=== PATIENT | female | born 1970 | race Caucasian/White ===

== ENCOUNTER 2020-05-27 07:29 | Inpatient (IN) | payer BC, OTHER ==
[~2020-05-27] VITALS: Ht 165.1 cm; Wt 110.9 kg
[2020-05-27] MEDS ORDERED: SODIUM CHLORIDE 0.9% 1,000 ML IV ONE ×2 (07:45)
[2020-05-27 08:11] LABS: Basophils # (auto) 0.1 10 ^3/uL (0-0.2); Basophils % (auto) 0.7 % (0.0-2.0); Eosinophils # (auto) 0.1 10 ^3/uL (0-0.8); Eosinophils % (auto) 0.9 % (0.0-7.0); Hematocrit 49.2 % (36.0-46.0); Hemoglobin 16.2 g/dL (12.2-16.2); Lymphocytes # (auto) 1.5 10 ^3/uL (0.4-5.4); Lymphocytes % (auto) 20.7 % (10.0-50.0); Mean Corpuscular Hemoglobin 31.1 pg (28.0-32.0); Mean Corpuscular Hgb Conc. 32.8 g/dL (32.0-36.0); Mean Corpuscular Volume 94.8 fL (80.0-100.0); Monocytes # (auto) 0.3 10 ^3/uL (0-1.3); Neutrophils # (auto) 5.5 10 ^3/uL (1.6-8.6); Neutrophils % (auto) 73.7 % (37.0-80.0); Platelet Count (auto) 340 10^3/uL (140-450); Red Blood Cells 5.19 10^6/uL (4.0-5.20); Red Cell Distribution Width 16.6 % (11.8-14.3); White Blood Cell 7.4 10^3/uL (4.4-10.8)
[2020-05-27 08:24] LABS: Anion Gap 8 (5-15); Blood Urea Nitrogen 10 mg/dL (7-18); Carbon Dioxide 24 mmol/L (21-32); Chloride 107 mmol/L (98-107); Glucose 122 mg/dL (74-106); Magnesium 2.4 mg/dL (1.6-2.6); Potassium 3.3 mmol/L (3.5-5.1); Sodium 139 mmol/L (136-145)
[2020-05-27 08:31] LABS: Alanine Aminotransferase 28 U/L (13-56); Alkaline Phosphatase 89 U/L (45-117); Aspartate Aminotransferase 20 U/L (15-37); BUN/Creatinine Ratio 9.3; Bilirubin, Total 0.8 mg/dL (0.2-1.0); GFR African American 70 mL/min; GFR Non-African American 58 mL/min; Total Protein 7.5 g/dL (6.4-8.2)
[2020-05-27] MEDS ORDERED: ONDANSETRON HCL 4 MG/2 ML VIAL IV ONE (08:45)
[2020-05-27] MEDS ORDERED: LORazepam 2MG/ML-1ML VIAL IV ONE ×2 (09:00→12:30)
[2020-05-27 10:00] LABS: Urine Bacteria NONE SEEN /hpf (None Seen); Urine Blood Negative /uL (Negative); Urine Mucus FEW (None Seen); Urine Specific Gravity 1.005 (1.001-1.035); Urine WBC 2 /hpf (0 - 5)
[2020-05-27] MEDS ORDERED: LACTATED RINGER'S 1,000 ML IV ONE (10:30)
[2020-05-27] MEDS ORDERED: LEVOTHYROXINE SODIUM 100 MCG/5 ML INJ IV ONE (10:30)
[2020-05-27] MEDS ORDERED: HYDROCORTISONE SOD SUCC 100 MG/2ML INJ VIAL IV ONE (10:30)
[2020-05-27] MEDS ORDERED: POTASSIUM CHL 20MEQ/100ML 100 ML IV ONE (10:30)
[2020-05-27] MEDS ORDERED: cefTRIAXone 1GM/50ML D5W 50 ML IV ONE (10:30)
[2020-05-27] MEDS ORDERED: DOCUSATE SOD 100 MG CAP PO PRN (11:00)
[2020-05-27] MEDS ORDERED: MORPHINE SULF INJ 2 MG/ML SYRINGE 1ML IV PRN ×2 (11:00)
[2020-05-27] MEDS ORDERED: HYDROcodone-ACET 5/325MG TAB PO PRN (11:00)
[2020-05-27] MEDS ORDERED: ACETAMINOPHEN 325 MG TAB PO PRN (11:00)
[2020-05-27] MEDS ORDERED: LACTULOSE 20Gm/30ML SOLN PO ONE (11:00)
[2020-05-27] MEDS ORDERED: ATORVASTATIN 20 MG TAB PO ONE (11:00)
[2020-05-27] MEDS ORDERED: POTASSIUM EFFERVESENT TAB 25 MEQ PO ONE (11:00)
[2020-05-27] MEDS ORDERED: NITROGLYCERIN 0.4 MG SL TAB SL PRN (11:00)
[2020-05-27] MEDS ORDERED: ALUM & MAG HYDROX-SIMETH LIQ(MAALOX) 30 ML PO PRN (11:00)
[2020-05-27] MEDS ORDERED: LACTULOSE 20Gm/30ML SOLN PO PRN (11:00)
[2020-05-27 11:43] LABS: Cholesterol 254 mg/dL (< 200)
[2020-05-27 11:48] LABS: HDL Cholesterol 50 mg/dL (40-59); LDL Cholesterol 183 mg/dL (< 100); Triglycerides 210 mg/dL (< 150)
[2020-05-27] MEDS: HYDROCORTISONE SOD SUCC 100 MG/2ML INJ VIAL IV SCH ×2 (14:55→21:55)
--- NOTE | 2020-05-27 15:15 | NUR ---
Telemetry admit from ER TISH YUNG admitted to Telemetry unit after SBAR received. Patient oriented to Rossi Randall, primary RN, unit, room, bed, and unit policies regarding patient care and visiting hours. Patient now on continuous telemetry monitoring, tele box # 31 and telemetry reading on arrival to unit is SINUS RHYTHM AT 94. No s/s of distress noted. Updated on POC and instructed to call for assistance as needed, patient verbalized understanding. Bed locked in lowest position, side rails up x2, call light within reach, fall precautions in place. Will continue to monitor for changes.
[2020-05-27 15:20] VITALS: BP 126/81
[2020-05-27] MEDS: SODIUM CHLORIDE 0.9% 1,000 ML IV SCH ×2 (15:40→21:49)
[2020-05-27 16:00] VITALS: BP 126/81
[2020-05-27] MEDS ORDERED: LEVO150T10 PO (16:03)
[2020-05-27] MEDS ORDERED: METO25TA93 PO (16:03)
[2020-05-27] MEDS: LORazepam 0.5 MG TAB PO PRN (18:03)
--- NOTE | 2020-05-27 19:40 | NUR ---
Opening Shift Note Assumed care of patient, awake and alert. No S/S of distress/SOB noted. Instructed to call for assist PRN. Discussed the plan of care with the patient. Bed in lowest position, side rails up x2, and the call light is within reach.
[2020-05-27] MEDS: METOPROLOL TARTRATE 25 MG TAB PO SCH (21:49)
[2020-05-27 21:50] VITALS: BP 96/47
[2020-05-27] MEDS ORDERED: ATORVASTATIN 20 MG TAB PO SCH (22:00)
[2020-05-28] MEDS: LORazepam 0.5 MG TAB PO PRN ×2 (04:57→10:43)
[2020-05-28 05:05] VITALS: BP 118/74
[2020-05-28] MEDS: HYDROCORTISONE SOD SUCC 100 MG/2ML INJ VIAL IV SCH (05:35)
--- NOTE | 2020-05-28 07:30 | NUR ---
Opening Shift Note Assumed care of patient, awake and alert. No S/S of distress/SOB, patient denies pain at this time. Updated on POC and instructed to call for assistance PRN. Bed locked in lowest position, side rails up x2, call light within reach. Fall precautions in place. Will continue to monitor for changes Q1hr and PRN.
[2020-05-28] MEDS ORDERED: ADENOSINE 88 MG in GIVE UN-DILUTED 0 ML IV STA (08:18)
--- NOTE | 2020-05-28 08:25 | NUR ---
IV insertion IV access obtained, via clean sterile technique by inserting 20 gauge catheter at LEFT FOREARM after 1 attempt. IV secured properly. No trauma to site. Patient tolerated well.
[2020-05-28 09:00] VITALS: BP 144/87
[2020-05-28] MEDS ORDERED: cefTRIAXone 1GM/50ML D5W 50 ML IV SCH (09:00)
[2020-05-28] MEDS: LEVOTHYROXINE SODIUM 100 MCG/5 ML INJ IV SCH (09:16)
[2020-05-28] MEDS: ASPirin 81 mg TAB PO SCH (09:17)
[2020-05-28] MEDS: POTASSIUM CHL 20 Meq TABLET PO SCH (09:17)
[2020-05-28] MEDS: METOPROLOL TARTRATE 25 MG TAB PO SCH (09:17)
[2020-05-28] MEDS ORDERED: ENOXAPARIN SOD 40 MG/0.4 ML SYRINGE SC SCH (10:00)
[2020-05-28] MEDS ORDERED: traMADol HCL 50 MG TAB PO PRN (10:45)
[2020-05-28 12:41] VITALS: BP 144/77
[2020-05-28] MEDS ORDERED: LORazepam 0.5 MG TAB PO PRN (14:15)
--- NOTE | 2020-05-28 14:31 | NUR ---
Nutrition Consult/assessment Note Please see attached link for complete assessment Est Energy needs ABW 80 [id number] kcals (20-23 kcal/kgBW), Est Protein needs: 80-88 gms/day (1.0-1.1 gm/kgBW). Will continue to monitor and reassess prn. Addendum: 05/28/20 at [address] Amended: Links added.
[2020-05-28 16:59] VITALS: BP 127/79
--- NOTE | 2020-05-28 19:30 | NUR ---
Opening Shift Note Assumed care of patient, awake and alert. No S/S of distress/SOB noted. Discussed the plan of care, instructed to call as needed. Bed in lowest position, side rails up x2, and the call light is within reach, will continue to monitor
[2020-05-28 21:00] VITALS: BP 120/69
[2020-05-28] MEDS: ATORVASTATIN 20 MG TAB PO SCH (22:11)
[2020-05-29 05:00] VITALS: BP 116/68
--- NOTE | 2020-05-29 05:07 | NUR ---
Patient anxious at this time and complained of nausea, PRN meds given as ordered.
[2020-05-29] MEDS: ONDANSETRON HCL 4 MG/2 ML VIAL IV PRN ×2 (05:24→09:58)
[2020-05-29 06:07] LABS: Calcium 8.4 mg/dL (8.5-10.1); Potassium 3.4 mmol/L (3.5-5.1)
[2020-05-29 06:11] LABS: BUN/Creatinine Ratio 9.3
--- NOTE | 2020-05-29 08:00 | NUR ---
Opening Shift Note Assumed care of patient, awake and alert. No S/S of distress/SOB or pain. Patient is very anxious and complaints of nausea. Emotional support provided. Will give due medication on time. Will inform MD of the current status. Instructed on POC and to call for assist PRN, will continue to monitor for changes Q1hr and PRN.
[2020-05-29 09:00] VITALS: BP 116/60
[2020-05-29] MEDS: LEVOTHYROXINE SODIUM 100 MCG/5 ML INJ IV SCH (09:58)
[2020-05-29] MEDS: ASPirin 81 mg TAB PO SCH (09:58)
[2020-05-29] MEDS: POTASSIUM CHL 20 Meq TABLET PO SCH (09:58)
[2020-05-29] MEDS ORDERED: LEVOTHYROXINE SODIUM 50 MCG TAB PO ONE (10:45)
[2020-05-29] MEDS ORDERED: PANTOPRAZOLE 40 MG/10 ML VIAL INJ IV ONE (10:45)
[2020-05-29] MEDS: SOD CHL 0.9%/ KCL 20MEQ 1,000 ML IV SCH (11:24)
[2020-05-29] MEDS: LORazepam 0.5 MG TAB PO PRN (11:26)
[2020-05-29 13:00] VITALS: BP 126/84
[2020-05-29 17:08] VITALS: BP 117/74
[2020-05-29] MEDS: SIMETHICONE 40 MG/0.6 ML ORAL DROP PO SCH ×2 (17:17→21:57)
[2020-05-29] MEDS: SUCRALFATE 1 GM/10 ML ORAL SUSP PO SCH ×2 (17:17→21:56)
--- NOTE | 2020-05-29 19:30 | NUR ---
Opening Shift Note Assumed care of patient, awake and alert. No S/S of distress/SOB or pain. Instructed on POC and to call for assist PRN, will continue to monitor for changes Q1hr and PRN.
[2020-05-29] MEDS: ATORVASTATIN 20 MG TAB PO SCH (21:57)
[2020-05-29] MEDS: PANTOPRAZOLE 40 MG/10 ML VIAL INJ IV SCH (21:57)
[2020-05-29 22:00] VITALS: BP 106/67
[2020-05-30] MEDS: SOD CHL 0.9%/ KCL 20MEQ 1,000 ML IV SCH (02:34)
[2020-05-30 05:00] VITALS: BP 135/70
[2020-05-30 06:05] LABS: Basophils # (auto) 0.1 10 ^3/uL (0-0.2); Basophils % (auto) 0.8 % (0.0-2.0); Eosinophils # (auto) 0.1 10 ^3/uL (0-0.8); Eosinophils % (auto) 1.1 % (0.0-7.0); Hematocrit 43.1 % (36.0-46.0); Hemoglobin 14.3 g/dL (12.2-16.2); Lymphocytes # (auto) 1.9 10 ^3/uL (0.4-5.4); Lymphocytes % (auto) 29.4 % (10.0-50.0); Mean Corpuscular Hemoglobin 32.2 pg (28.0-32.0); Mean Corpuscular Hgb Conc. 33.3 g/dL (32.0-36.0); Mean Corpuscular Volume 96.9 fL (80.0-100.0); Monocytes # (auto) 0.3 10 ^3/uL (0-1.3); Monocytes % (auto) 4.5 % (0.0-12.0); Neutrophils # (auto) 4.1 10 ^3/uL (1.6-8.6); Neutrophils % (auto) 64.2 % (37.0-80.0); Nucleated Red Blood Cells % 0.1 %; Platelet Count (auto) 296 10^3/uL (140-450); Red Blood Cells 4.45 10^6/uL (4.0-5.20); White Blood Cell 6.4 10^3/uL (4.4-10.8)
[2020-05-30] MEDS: SUCRALFATE 1 GM/10 ML ORAL SUSP PO SCH ×4 (06:05→21:11)
[2020-05-30] MEDS: SIMETHICONE 40 MG/0.6 ML ORAL DROP PO SCH ×4 (06:06→21:11)
[2020-05-30] MEDS: LEVOTHYROXINE SODIUM 50 MCG TAB PO SCH (06:06)
[2020-05-30 06:20] LABS: INR 1.09 (0.9-1.15); Partial Thromboplastin Time 27.3 sec (23.0-31.2)
[2020-05-30 06:21] LABS: Calcium 8.3 mg/dL (8.5-10.1); Potassium 3.3 mmol/L (3.5-5.1)
[2020-05-30 06:23] LABS: BUN/Creatinine Ratio 8.7
[2020-05-30] MEDS: ONDANSETRON HCL 4 MG/2 ML VIAL IV PRN (06:37)
--- NOTE | 2020-05-30 07:45 | NUR ---
Opening Shift Note Assumed care of patient, awake and alert, reports extreme anxiety, requesting medication. No S/S of distress/SOB or pain. Instructed on POC and to call for assist PRN, will continue to monitor for changes Q1hr and PRN.
[2020-05-30] MEDS: LORazepam 0.5 MG TAB PO PRN (07:52)
[2020-05-30 09:00] VITALS: BP 118/76
[2020-05-30] MEDS ORDERED: PANTOPRAZOLE 40 MG/10 ML VIAL INJ IV SCH (10:00)
[2020-05-30] MEDS: LEVOTHYROXINE SODIUM 100 MCG/5 ML INJ IV SCH (10:05)
[2020-05-30] MEDS: PANTOPRAZOLE 40 MG/10 ML VIAL INJ IV SCH ×2 (10:05→21:11)
[2020-05-30] MEDS: POTASSIUM CHL 20 Meq TABLET PO SCH (10:05)
[2020-05-30] MEDS: ASPirin 81 mg TAB PO SCH (10:05)
[2020-05-30 13:00] VITALS: BP 120/76
[2020-05-30 17:00] VITALS: BP 108/71
--- NOTE | 2020-05-30 19:50 | NUR ---
Opening Shift Note Assumed care of patient, awake and alert. No S/S of distress/SOB or pain. Instructed on POC and to call for assist PRN, patient verbalized understanding and in agreement. Fall and safety precautions in place. Call light within reach and able to use. Will continue to monitor for changes Q1hr and PRN.
[2020-05-30] MEDS: ATORVASTATIN 20 MG TAB PO SCH (21:11)
[2020-05-30 22:00] VITALS: BP 112/78
[2020-05-31] MEDS: ONDANSETRON HCL 4 MG/2 ML VIAL IV PRN (04:42)
[2020-05-31 05:00] VITALS: BP 114/74
[2020-05-31] MEDS: LORazepam 0.5 MG TAB PO PRN (05:27)
[2020-05-31] MEDS: LEVOTHYROXINE SODIUM 50 MCG TAB PO SCH (06:13)
[2020-05-31] MEDS: SIMETHICONE 40 MG/0.6 ML ORAL DROP PO SCH ×4 (06:13→21:17)
[2020-05-31] MEDS: SUCRALFATE 1 GM/10 ML ORAL SUSP PO SCH ×4 (06:13→21:17)
[2020-05-31 07:39] LABS: Calcium 8.7 mg/dL (8.5-10.1); Potassium 3.3 mmol/L (3.5-5.1)
[2020-05-31 07:43] LABS: BUN/Creatinine Ratio 8.5
--- NOTE | 2020-05-31 08:00 | NUR ---
Opening Shift Note Assumed care of patient, awake, alert, and oriented. No S/S of distress/SOB or pain. Bed in lowest/locked position, bed rails up x2, call light within reach. Instructed on POC and to call for assist PRN. Will continue to monitor for changes Q1hr and PRN.
[2020-05-31] MEDS: PANTOPRAZOLE 40 MG/10 ML VIAL INJ IV SCH ×2 (08:51→21:17)
[2020-05-31] MEDS: LEVOTHYROXINE SODIUM 100 MCG/5 ML INJ IV SCH (08:51)
[2020-05-31] MEDS: ASPirin 81 mg TAB PO SCH (08:51)
[2020-05-31 09:01] VITALS: BP 119/76
[2020-05-31] MEDS ORDERED: POTASSIUM EFFERVESENT TAB 25 MEQ PO ONE (09:45)
--- NOTE | 2020-05-31 10:10 | NUR ---
ROUNDS DR SUTTON ROUNDING ON PATIENT. NEW ORDERS RECEIVED/WILL CARRY OUT. WILL CONTINUE TO MONITOR
[2020-05-31] MEDS ORDERED: ENOXAPARIN SOD 40 MG/0.4 ML SYRINGE SC ONE (10:15)
[2020-05-31] MEDS ORDERED: LACTULOSE 20Gm/30ML SOLN PO ONE (10:15)
--- NOTE | 2020-05-31 10:50 | NUR ---
MD ROUNDS DR ARIZMENDI ROUNDING ON PATIENT. WILL CONTINUE TO MONITOR
[2020-05-31] MEDS: LACTULOSE 20Gm/30ML SOLN PO SCH ×2 (12:26→17:22)
[2020-05-31 13:00] VITALS: BP 109/73
--- NOTE | 2020-05-31 13:05 | NUR ---
ORTHOSTATIC VITALS PER MD SUTTON PATIENT SITTING B/P 120/84 STANDING 106/66
--- NOTE | 2020-05-31 14:02 | NUR ---
Nutrition Followup Note Pt wt is 111.2 kg Unable to speak to pt d/t pt curtain was drawn when rounded this morning. Pt is with a Regular diet, appetite is inadequate aeb ave 25% PO intake over 2 days per RN doc. Will continue to monitor PO status, skin status, pertinent labs and weight trends. Will f/u in 3-5 days. Est Energy needs ABW 80 [id number] kcals (20-23 kcal/kgBW), Est Protein needs: 80-88 gms/day (1.0-1.1 gm/kgBW). Will continue to monitor and reassess prn. LABS: Gluc 113 H GI: Pt had 1 BM on 05/28 per RN doc BS: 18 mod risk Refer to wound assessment report for full details. PES: 1) Altered nutrition related lab values r.t current chronic medical condition aeb elev lipids 2) Decreased nutrient needs r.t adiposity aeb pt`s high BMI of 38.6 kgm2 Comments 1) consider low fat low choles low lactose diet 2) refer to [facility]PD dietitan on DC 3) continue current plan of care
[2020-05-31 17:01] VITALS: BP 117/72
--- NOTE | 2020-05-31 17:05 | NUR ---
BOWEL MOVEMENT PATIENT HAD MODERATE SIZED LIQUID BROWN BM. WILL CONTINUE TO MONITOR
[2020-05-31] MEDS: FAMOTIDINE 20 MG TAB PO SCH (17:22)
--- NOTE | 2020-05-31 19:40 | NUR ---
Opening Shift Note Assumed care of patient. Upon entering room, patient is awake and alert. Patient is in no apparent S/S of distress/SOB or pain. Fall and safety precautions in place. Instructed on POC and to call for assist PRN, patient verbalized understanding and in agreement. Will continue to monitor q1hr and PRN.
[2020-05-31 22:00] VITALS: BP 103/62
[2020-06-01 05:00] VITALS: BP 114/63
[2020-06-01] MEDS: LACTULOSE 20Gm/30ML SOLN PO SCH ×5 (06:00→23:41)
[2020-06-01] MEDS: LEVOTHYROXINE SODIUM 50 MCG TAB PO SCH (06:05)
[2020-06-01] MEDS: SIMETHICONE 40 MG/0.6 ML ORAL DROP PO SCH ×4 (06:05→21:06)
[2020-06-01] MEDS: SUCRALFATE 1 GM/10 ML ORAL SUSP PO SCH ×4 (06:05→21:06)
[2020-06-01 09:00] VITALS: BP 127/89
[2020-06-01] MEDS: ENOXAPARIN SOD 40 MG/0.4 ML SYRINGE SC SCH (09:12)
[2020-06-01] MEDS: PANTOPRAZOLE 40 MG/10 ML VIAL INJ IV SCH ×2 (09:13→21:06)
[2020-06-01] MEDS: ONDANSETRON HCL 4 MG/2 ML VIAL IV PRN (09:13)
--- NOTE | 2020-06-01 10:19 | NUR ---
ORTHOSTATIC B/P ORTHOSTATIC VS PER MD ORDERS 1019AM SITTIN/85 BP 78 HR 1021AM STANDIN/82 BP 80 HR
[2020-06-01] MEDS: Ensure Enlive Strawberry 8oz Bottle PO SCH (11:00)
--- NOTE | 2020-06-01 11:55 | NUR ---
AMBULATION PATIENT AMBULATING IN HALLS. NO S/S OF DISTRESS, SOB NO C/O PAIN. WILL CONTINUE TO MONITOR
[2020-06-01 13:00] VITALS: BP 124/75
[2020-06-01 17:00] VITALS: BP 107/58
[2020-06-01] MEDS: FAMOTIDINE 20 MG TAB PO SCH (17:34)
--- NOTE | 2020-06-01 19:35 | NUR ---
Opening Shift Note Assumed care of patient, awake/alert/oriented. No S/S of distress/SOB. Patient resting comfortably in bed. Fall and safety precautions in place. Call light within reach and able to use. Instructed on POC and to call for assist PRN, patient verbalized understanding and in agreement. Will continue to monitor for changes Q1hr and PRN.
[2020-06-01 22:00] VITALS: BP 100/57
[2020-06-02 05:00] VITALS: BP 104/72
[2020-06-02] MEDS: LEVOTHYROXINE SODIUM 50 MCG TAB PO SCH (06:11)
[2020-06-02] MEDS: LACTULOSE 20Gm/30ML SOLN PO SCH ×2 (06:11→11:42)
[2020-06-02] MEDS: SIMETHICONE 40 MG/0.6 ML ORAL DROP PO SCH ×2 (06:11→11:38)
[2020-06-02] MEDS: SUCRALFATE 1 GM/10 ML ORAL SUSP PO SCH ×2 (06:11→11:38)
--- NOTE | 2020-06-02 08:17 | NUR ---
Opening Shift Note Assumed care of patient, awake and alert. No S/S of distress/SOB or pain. Instructed on POC and to call for assist PRN, will continue to monitor for changes Q1hr and PRN. Patiently ambulated to bathroom with minimum assistance and no signs of distress. Bed locked in lowest position, side rails up x 2, HOB elevated at least 30 degrees and call light is within reach.
[2020-06-02 09:00] VITALS: BP 110/78
[2020-06-02] MEDS: PANTOPRAZOLE 40 MG/10 ML VIAL INJ IV SCH (09:41)
[2020-06-02] MEDS: ENOXAPARIN SOD 40 MG/0.4 ML SYRINGE SC SCH (09:47)
[2020-06-02] MEDS: Ensure Enlive Strawberry 8oz Bottle PO SCH (10:00)
--- NOTE | 2020-06-02 10:35 | NUR ---
MD ROUNDS MD ROUNDS WITH DR. GILLETTE. PLANS TO D/C PATIENT THIS AFTERNOON
--- NOTE | 2020-06-02 12:38 | NUR ---
ENDORSED CARE TO SUMEET BOWERS
--- NOTE | 2020-06-02 12:45 | NUR ---
ASSUMED CARE RECEIVED REPORT FROM ELISSA VERDUGO
[2020-06-02 13:00] VITALS: BP 124/76
--- NOTE | 2020-06-02 15:59 | NUR ---
Discharge instructions given as ordered. Encourage to follow up with PMD as instructed. All questions and concerns addressed. Patient verbalized understanding. IV removed with catheter intact, pressure dressing applied. Telemetry unit returned to ICU. Patient taken to vehicle via wheelchair with all personal belongings, accompanied by staff. No distress noted at time of departure.
--- NOTE | 2020-06-02 16:04 | NUR ---
assessment Patient has no post discharge needs identified at this time. Addendum: 06/02/20 at 1604 by Arelis RAMOS Amended: Links added.
[2020-07-08] MEDS ORDERED: METO-281 PO (10:55)
[2020-07-08] MEDS ORDERED: FAMO40TA7 PO (10:55)
[2020-07-08] MEDS ORDERED: PANT40TA2 PO (10:55)
== END 2020-06-02 16:00 | disposition home or self-care (01) | DRG 80 ==
LOC: ER 07:29 → EDBD 07:29 → TELE 07:30 → TELE-CENTR 15:30
PROVIDERS: ADMIT Hospitalist; ATTEND Internal Medicine
DX: E03.5 Myxedema coma (principal); N17.0 Acute kidney failure with tubular necrosis; E44.0 Moderate protein-calorie malnutrition; K90.9 Intestinal malabsorption, unspecified; Z68.41 Body mass index [BMI] 40.0-44.9, adult; E66.01 Morbid (severe) obesity due to excess calories; E86.0 Dehydration; E87.6 Hypokalemia; N18.3 Chronic kidney disease, stage 3 (moderate); R07.89 Other chest pain; F41.0 Panic disorder [episodic paroxysmal anxiety]; I25.9 Chronic ischemic heart disease, unspecified; K29.70 Gastritis, unspecified, without bleeding; D51.0 Vitamin B12 deficiency anemia due to intrinsic factor deficiency; E11.22 Type 2 diabetes mellitus with diabetic chronic kidney disease; E78.5 Hyperlipidemia, unspecified; K21.9 Gastro-esophageal reflux disease without esophagitis; I12.9 Hypertensive chronic kidney disease with stage 1 through stage 4 chronic kidney disease, or unspecified chronic kidney disease; F41.9 Anxiety disorder, unspecified; E66.9 Obesity, unspecified; D25.9 Leiomyoma of uterus, unspecified; E07.9 Disorder of thyroid, unspecified; Z79.899 Other long term (current) drug therapy; Z80.3 Family history of malignant neoplasm of breast; Z80.7 Family history of other malignant neoplasms of lymphoid, hematopoietic and related tissues; Z83.3 Family history of diabetes mellitus; Z91.14 Patient's other noncompliance with medication regimen; Z91.19 Patient's noncompliance with other medical treatment and regimen
CPT/HCPCS: 36415; 71045; 74022; 74176; 76536; 78452; 80048; 80053; 80061; 81001; 82550; 82607; 82784; 83036; 83516; 83690; 83735; 84132; 84436; 84439; 84443; 84484; 85025; 85379; 85610; 85730; 86255; 87040; 93017; 93306; 93970; C9113; G0378; J0153; J0696; J2405; J3480; J3490

== ENCOUNTER → 2020-06-27 | Emergency (ER) | payer BC ==
[~2020-06-27] VITALS: Ht 165.1 cm; Wt 100.7 kg
[~2020-06-27] MED LIST: IOHEXOL 300 MG/ML 100ML BOTTLE IJ ONE; LEVO150T10 PO; METO25TA93 PO; POTASSIUM EFFERVESENT TAB 25 MEQ PO ONE; SODIUM CHLORIDE 0.9% 1,000 ML IV ONE; cefTRIAXone 1GM/50ML D5W 50 ML IV ONE
[2020-06-27 10:17] LABS: Urine Bacteria NONE SEEN /hpf (None Seen); Urine Blood TRACE /uL (Negative); Urine Mucus FEW (None Seen); Urine Specific Gravity 1.021 (1.001-1.035); Urine WBC 6 /hpf (0 - 5)
[2020-06-27 10:36] LABS: Basophils # (auto) 0.1 10 ^3/uL (0-0.2); Basophils % (auto) 0.7 % (0.0-2.0); Eosinophils # (auto) 0 10 ^3/uL (0-0.8); Eosinophils % (auto) 0.5 % (0.0-7.0); Hematocrit 46.8 % (36.0-46.0); Hemoglobin 15.7 g/dL (12.2-16.2); Lymphocytes # (auto) 1.3 10 ^3/uL (0.4-5.4); Lymphocytes % (auto) 17.5 % (10.0-50.0); Mean Corpuscular Hemoglobin 31.3 pg (28.0-32.0); Mean Corpuscular Hgb Conc. 33.6 g/dL (32.0-36.0); Mean Corpuscular Volume 92.9 fL (80.0-100.0); Monocytes # (auto) 0.4 10 ^3/uL (0-1.3); Monocytes % (auto) 4.9 % (0.0-12.0); Neutrophils # (auto) 5.7 10 ^3/uL (1.6-8.6); Neutrophils % (auto) 76.4 % (37.0-80.0); Nucleated Red Blood Cells % 0.1 %; Platelet Count (auto) 363 10^3/uL (140-450); Red Blood Cells 5.04 10^6/uL (4.0-5.20); Red Cell Distribution Width 14.6 % (11.8-14.3); White Blood Cell 7.4 10^3/uL (4.4-10.8)
[2020-06-27 10:50] LABS: Chloride 110 mmol/L (98-107); Potassium 3.1 mmol/L (3.5-5.1); Sodium 142 mmol/L (136-145)
[2020-06-27 11:02] LABS: Alanine Aminotransferase 36 U/L (13-56); Alkaline Phosphatase 92 U/L (45-117); Amylase 31 U/L (25-115); Anion Gap 8 (5-15); Aspartate Aminotransferase 19 U/L (15-37); BUN/Creatinine Ratio 9.1; Bilirubin, Total 0.6 mg/dL (0.2-1.0); Blood Urea Nitrogen 8 mg/dL (7-18); Carbon Dioxide 24 mmol/L (21-32); GFR African American 87 mL/min; GFR Non-African American 72 mL/min; Glucose 108 mg/dL (74-106); Lipase 73 U/L (73-393); Magnesium 2.3 mg/dL (1.6-2.6); Total Protein 7.5 g/dL (6.4-8.2)
[2020-06-27 14:00] VITALS: BP 132/77
== END | disposition home or self-care (01) ==
LOC: ER 09:39
DX: K52.9 Noninfective gastroenteritis and colitis, unspecified (principal); E87.6 Hypokalemia; E86.0 Dehydration; N39.0 Urinary tract infection, site not specified; I10 Essential (primary) hypertension; E07.9 Disorder of thyroid, unspecified
CPT/HCPCS: 36415; 71045; 74177; 80053; 81001; 82150; 83690; 83735; 84443; 84484; 85025; 93005; 96361; 96365; 99285; J0696; J7030; Q9967

== ENCOUNTER → 2020-07-10 | Day surgery (SDC) | payer BC ==
[2020-07-08 11:35] LABS: Basophils # (auto) 0 10 ^3/uL (0-0.2); Basophils % (auto) 0.7 % (0.0-2.0); Eosinophils # (auto) 0.1 10 ^3/uL (0-0.8); Eosinophils % (auto) 2.3 % (0.0-7.0); Hematocrit 45.5 % (36.0-46.0); Hemoglobin 15.4 g/dL (12.2-16.2); Lymphocytes # (auto) 1.4 10 ^3/uL (0.4-5.4); Lymphocytes % (auto) 23.8 % (10.0-50.0); Mean Corpuscular Hemoglobin 31.4 pg (28.0-32.0); Mean Corpuscular Hgb Conc. 33.8 g/dL (32.0-36.0); Mean Corpuscular Volume 92.8 fL (80.0-100.0); Monocytes # (auto) 0.5 10 ^3/uL (0-1.3); Monocytes % (auto) 8.4 % (0.0-12.0); Neutrophils # (auto) 3.9 10 ^3/uL (1.6-8.6); Neutrophils % (auto) 64.8 % (37.0-80.0); Nucleated Red Blood Cells % 0.1 %; Platelet Count (auto) 310 10^3/uL (140-450); Red Cell Distribution Width 14.4 % (11.8-14.3); White Blood Cell 6.1 10^3/uL (4.4-10.8)
[2020-07-08 11:45] LABS: Urine Bacteria NONE SEEN /hpf (None Seen); Urine Blood TRACE /uL (Negative); Urine Mucus FEW (None Seen); Urine WBC 1 /hpf (0 - 5)
[2020-07-08 12:00] LABS: Calcium 9.2 mg/dL (8.5-10.1); Potassium 3.8 mmol/L (3.5-5.1)
[2020-07-08 12:03] LABS: BUN/Creatinine Ratio 17.8; Bilirubin, Total 0.4 mg/dL (0.2-1.0); Total Protein 7.2 g/dL (6.4-8.2)
[2020-07-08 12:12] LABS: INR 1.04 (0.9-1.15); Partial Thromboplastin Time 26.8 sec (23.0-31.2)
[~2020-07-10] VITALS: Ht 165.1 cm; Wt 99.8 kg
[~2020-07-10] MED LIST changes: +FAMO40TA7 PO; +HYDROmorphone HCL 2 MG/ML VL IV PRN; -IOHEXOL 300 MG/ML 100ML BOTTLE IJ ONE; +LIDOCAINE 1% (LOCAL ANESTH.) PF 5ml SDV ONE; +METO-281 PO; -METO25TA93 PO; +METOCLOPRAMIDE HCL 5MG/ml INJ 2ml VIAL ONE; +MIDAZOLAM HCL 1MG/1ML-2 ML VIAL ONE; +NALOXONE HCL 0.4 MG/ML VIAL IV PRN; +ONDANSETRON HCL 4 MG/2 ML VIAL IV PRN; +PANT40TA2 PO; -POTASSIUM EFFERVESENT TAB 25 MEQ PO ONE; +PROPOFOL 10 MG/ML 20 ML IV ONE; -SODIUM CHLORIDE 0.9% 1,000 ML IV ONE; -cefTRIAXone 1GM/50ML D5W 50 ML IV ONE; +diphenhdrAMINE HCL 50 MG/1 ML VL ONE; +fentaNYL CITRATE 100 MCG/2 ML VL ONE
[2020-07-10 12:56] VITALS: BP 115/72
== END | disposition home or self-care (01) ==
LOC: GI 09:03
PROVIDERS: ATTEND Internal Medicine Gastroenterology
DX: R10.9 Unspecified abdominal pain (principal); K31.7 Polyp of stomach and duodenum; K29.70 Gastritis, unspecified, without bleeding; K64.8 Other hemorrhoids; D64.9 Anemia, unspecified; I44.7 Left bundle-branch block, unspecified; K21.9 Gastro-esophageal reflux disease without esophagitis; E66.9 Obesity, unspecified; G47.33 Obstructive sleep apnea (adult) (pediatric); E03.9 Hypothyroidism, unspecified; Z98.51 Tubal ligation status; Z88.5 Allergy status to narcotic agent; Z68.36 Body mass index [BMI] 36.0-36.9, adult; Z90.49 Acquired absence of other specified parts of digestive tract; Z98.890 Other specified postprocedural states; Z79.899 Other long term (current) drug therapy; Z20.828 Contact with and (suspected) exposure to other viral communicable diseases
CPT/HCPCS: 36415; 43239; 45378; 80053; 81001; 84702; 85025; 85610; 85730; 88305; 88313; 88342; J1200; J2250; J2704; J2765; J3010; U0003

== ENCOUNTER → 2020-08-21 | Day surgery (SDC) | payer BC ==
[2020-08-15 11:19] LABS: Basophils # (auto) 0.1 10 ^3/uL (0-0.2); Basophils % (auto) 0.9 % (0.0-2.0); Eosinophils # (auto) 0.1 10 ^3/uL (0-0.8); Eosinophils % (auto) 1.3 % (0.0-7.0); Hematocrit 45.1 % (36.0-46.0); Hemoglobin 14.9 g/dL (12.2-16.2); Lymphocytes # (auto) 1.2 10 ^3/uL (0.4-5.4); Lymphocytes % (auto) 18.4 % (10.0-50.0); Mean Corpuscular Hemoglobin 29.4 pg (28.0-32.0); Mean Corpuscular Hgb Conc. 33.1 g/dL (32.0-36.0); Mean Corpuscular Volume 88.8 fL (80.0-100.0); Monocytes # (auto) 0.4 10 ^3/uL (0-1.3); Monocytes % (auto) 5.9 % (0.0-12.0); Neutrophils # (auto) 4.6 10 ^3/uL (1.6-8.6); Neutrophils % (auto) 73.5 % (37.0-80.0); Platelet Count (auto) 275 10^3/uL (140-450); Red Blood Cells 5.08 10^6/uL (4.0-5.20); Red Cell Distribution Width 13.6 % (11.8-14.3); White Blood Cell 6.2 10^3/uL (4.4-10.8)
[2020-08-15 11:34] LABS: INR 1.05 (0.9-1.15); Partial Thromboplastin Time 27.8 sec (23.0-31.2)
[2020-08-15 12:03] LABS: Potassium 3.6 mmol/L (3.5-5.1)
[2020-08-15 12:13] LABS: Albumin 3.7 g/dL (3.4-5.0); BUN/Creatinine Ratio 11.3; Bilirubin, Total 0.5 mg/dL (0.2-1.0); Total Protein 6.7 g/dL (6.4-8.2)
[~2020-08-21] VITALS: Ht 165.1 cm; Wt 97.5 kg
[~2020-08-21] MED LIST changes: -FAMO40TA7 PO; -HYDROmorphone HCL 2 MG/ML VL IV PRN; -LIDOCAINE 1% (LOCAL ANESTH.) PF 5ml SDV ONE; +LIDOCAINE VISCOUS 2% 15ML UD ONE; -METOCLOPRAMIDE HCL 5MG/ml INJ 2ml VIAL ONE; -MIDAZOLAM HCL 1MG/1ML-2 ML VIAL ONE; +MIDAZOLAM HCL 5 MG/ML-1ML VIAL ONE; -NALOXONE HCL 0.4 MG/ML VIAL IV PRN; +ONDA-144 PO; -ONDANSETRON HCL 4 MG/2 ML VIAL IV PRN; -PROPOFOL 10 MG/ML 20 ML IV ONE; +SODIUM CHLORIDE LOCK 10 ML ONE
[2020-08-21] MEDS: MIDAZOLAM HCL 5 MG/ML-1ML VIAL ONE ×2 (10:28→10:31)
[2020-08-21] MEDS: fentaNYL CITRATE 100 MCG/2 ML VL ONE ×2 (10:28→10:31)
[2020-08-21 11:15] VITALS: BP 118/77
== END | disposition home or self-care (01) ==
LOC: GI 09:14
PROVIDERS: ATTEND Internal Medicine Gastroenterology
DX: K29.70 Gastritis, unspecified, without bleeding (principal); K31.89 Other diseases of stomach and duodenum; Z68.35 Body mass index [BMI] 35.0-35.9, adult; E66.01 Morbid (severe) obesity due to excess calories; Z80.3 Family history of malignant neoplasm of breast; Z90.49 Acquired absence of other specified parts of digestive tract; Z20.828 Contact with and (suspected) exposure to other viral communicable diseases; Z79.899 Other long term (current) drug therapy; Z98.890 Other specified postprocedural states; Z88.5 Allergy status to narcotic agent; Z98.51 Tubal ligation status
CPT/HCPCS: 36415; 43239; 43251; 80053; 85025; 85610; 85730; 88305; 88342; J1200; J2250; J3010; U0003; 99152; 99153

== ENCOUNTER → 2020-09-19 | Outpatient (CLI) | payer BC ==
[~2020-09-19] MED LIST changes: -LIDOCAINE VISCOUS 2% 15ML UD ONE; -MIDAZOLAM HCL 5 MG/ML-1ML VIAL ONE; -SODIUM CHLORIDE LOCK 10 ML ONE; -diphenhdrAMINE HCL 50 MG/1 ML VL ONE; -fentaNYL CITRATE 100 MCG/2 ML VL ONE
--- NOTE | 2020-09-19 09:35 | NUR ---
RIGHT BREAST BIOPSY CONSENT OBTAINED FOR PROCEDURE. PATIENT UNDERWENT RIGHT BREAST BIOPSY IN .S. DEPT PER DR LANGLEY UNDER LOCAL ANESTHETIC. PATIENT SIDRA PROCEDURE WELL. BANDAID APPLIED TO SITE - NO HEMATOMA OR BLEEDING NOTED. PATIENT GIVEN AFTERCARE BREAST BIOPSY INSTRUCTIONS AND VERBALIZED UNDERSTANDING OF S/S INFECTION. INSTRUCTED PATIENT TO GO TO OUTPATIENT RADIOLOGY OFFICE FOR FURTHER IMAGES TO BE TAKEN THIS AM - PATIENT STATED SHE WOULD REPORT TO OUTPATIENT RADIOLOGY.
== END | disposition home or self-care (01) ==
LOC: US 09:02
PROVIDERS: ATTEND Internal Medicine
DX: N63.10 Unspecified lump in the right breast, unspecified quadrant (principal); N60.31 Fibrosclerosis of right breast; Z88.5 Allergy status to narcotic agent; Z80.3 Family history of malignant neoplasm of breast; Z98.890 Other specified postprocedural states; Z79.899 Other long term (current) drug therapy; Z98.51 Tubal ligation status
CPT/HCPCS: 19083; 76942

== ENCOUNTER → 2020-09-23 | Outpatient (CLI) | payer BC | END | disposition home or self-care (01) | LOC: XY 07:42 | PROVIDERS: ATTEND Internal Medicine Gastroenterology | DX: R68.81 Early satiety (principal) | CPT/HCPCS: 78264; A9541 ==

== ENCOUNTER 2020-10-03 17:41 | Emergency (ER) | payer BC ==
[~2020-10-03] VITALS: Ht 165.1 cm; Wt 89.8 kg
[2020-10-03 20:48] LABS: Basophils # (auto) 0 10 ^3/uL (0-0.2); Basophils % (auto) 0.5 % (0.0-2.0); Eosinophils # (auto) 0 10 ^3/uL (0-0.8); Lymphocytes # (auto) 1.8 10 ^3/uL (0.4-5.4); Monocytes # (auto) 0.5 10 ^3/uL (0-1.3); Red Cell Distribution Width 13.4 % (11.8-14.3)
[2020-10-03 20:50] LABS: Eosinophils % (auto) 0.7 % (0.0-7.0); Hematocrit 50.9 % (36.0-46.0); Hemoglobin 16.6 g/dL (12.2-16.2); Lymphocytes % (auto) 26.4 % (10.0-50.0); Mean Corpuscular Hemoglobin 27.3 pg (28.0-32.0); Mean Corpuscular Hgb Conc. 32.7 g/dL (32.0-36.0); Mean Corpuscular Volume 83.7 fL (80.0-100.0); Neutrophils # (auto) 4.3 10 ^3/uL (1.6-8.6); Neutrophils % (auto) 64.4 % (37.0-80.0); Nucleated Red Blood Cells % 0.1 %; Platelet Count (auto) 236 10^3/uL (140-450); Red Blood Cells 6.08 10^6/uL (4.0-5.20); White Blood Cell 6.8 10^3/uL (4.4-10.8)
[2020-10-03 21:07] LABS: Albumin 3.9 g/dL (3.4-5.0); Amylase 39 U/L (25-115); Anion Gap 10 (5-15); Blood Urea Nitrogen 11 mg/dL (7-18); Calcium 9.2 mg/dL (8.5-10.1); Carbon Dioxide 21 mmol/L (21-32); Chloride 108 mmol/L (98-107); Glucose 103 mg/dL (74-106); Lipase 103 U/L (73-393); Potassium 3.2 mmol/L (3.5-5.1); Sodium 139 mmol/L (136-145)
[2020-10-03 21:26] LABS: Alanine Aminotransferase 213 U/L (13-56); Alkaline Phosphatase 103 U/L (45-117); Aspartate Aminotransferase 116 U/L (15-37); BUN/Creatinine Ratio 14.5; Bilirubin, Total 1.1 mg/dL (0.2-1.0); GFR African American 103 mL/min; GFR Non-African American 85 mL/min; Total Protein 7.2 g/dL (6.4-8.2)
[2020-10-04] MEDS ORDERED: IOHEXOL 300 MG/ML 100ML BOTTLE IJ ONE (00:26)
[2020-10-04] MEDS ORDERED: LIDOCAINE VISCOUS 2% 15ML UD PO ONE (00:30)
[2020-10-04] MEDS ORDERED: MORPHINE SULFATE 4 MG/ML SYR/VIAL IV ONE (00:30)
[2020-10-04] MEDS ORDERED: SUCRALFATE 1 GM/10 ML ORAL SUSP PO ONE (00:30)
[2020-10-04] MEDS ORDERED: SODIUM CHLORIDE 0.9% 1,000 ML IVB ONE (00:30)
[2020-10-04] MEDS ORDERED: FAMOTIDINE (10MG/ML) 2ML VL IV ONE (00:30)
[2020-10-04] MEDS ORDERED: METOCLOPRAMIDE HCL 5MG/ml INJ 2ml VIAL IV ONE (00:30)
[2020-10-04 03:16] LABS: Magnesium 2.2 mg/dL (1.6-2.6)
[2020-10-04 05:58] VITALS: BP 98/73
== END 2020-10-04 06:08 | disposition home or self-care (01) ==
LOC: ER 17:41
DX: R10.13 Epigastric pain (principal); R11.0 Nausea; R63.0 Anorexia; I10 Essential (primary) hypertension; Z88.5 Allergy status to narcotic agent; Z79.899 Other long term (current) drug therapy
CPT/HCPCS: 36415; 74177; 80053; 82150; 83605; 83690; 83735; 84484; 85025; 96360; 96361; 99285; J7030; Q9967

== ENCOUNTER → 2020-12-22 | Outpatient (CLI) | payer BC ==
[~2020-12-22] MED LIST changes: +FLUO-126 PO; +LEVO100T8 PO
== END | disposition home or self-care (01) ==
LOC: XY 07:45
PROVIDERS: ATTEND Internal Medicine Gastroenterology
DX: D3A.00 Benign carcinoid tumor of unspecified site (principal)
CPT/HCPCS: 78802; 78831; A9547; 78805

== ENCOUNTER → 2021-01-01 | Day surgery (SDC) | payer BC ==
[2020-12-29 12:38] LABS: Basophils # (auto) 0 10 ^3/uL (0-0.2); Basophils % (auto) 0.8 % (0.0-2.0); Eosinophils # (auto) 0 10 ^3/uL (0-0.8); Eosinophils % (auto) 0.8 % (0.0-7.0); Hematocrit 47.3 % (36.0-46.0); Hemoglobin 15.9 g/dL (12.2-16.2); Lymphocytes # (auto) 1.4 10 ^3/uL (0.4-5.4); Lymphocytes % (auto) 23.7 % (10.0-50.0); Mean Corpuscular Hemoglobin 28.4 pg (28.0-32.0); Mean Corpuscular Hgb Conc. 33.6 g/dL (32.0-36.0); Mean Corpuscular Volume 84.4 fL (80.0-100.0); Monocytes # (auto) 0.3 10 ^3/uL (0-1.3); Monocytes % (auto) 5.6 % (0.0-12.0); Neutrophils % (auto) 69.1 % (37.0-80.0); Nucleated Red Blood Cells % 0.1 %; Platelet Count (auto) 242 10^3/uL (140-450); Red Blood Cells 5.61 10^6/uL (4.0-5.20); Red Cell Distribution Width 15.1 % (11.8-14.3); White Blood Cell 5.8 10^3/uL (4.4-10.8)
[2020-12-29 12:52] LABS: INR 1.06 (0.9-1.15); Partial Thromboplastin Time 28.5 sec (23.0-31.2)
[~2021-01-01] VITALS: Ht 165.1 cm; Wt 80.7 kg
[~2021-01-01] MED LIST changes: -LEVO150T10 PO; +LIDOCAINE VISCOUS 2% 15ML UD ONE; -METO-281 PO; -ONDA-144 PO; +diphenhdrAMINE HCL 50 MG/1 ML VL ONE
[2021-01-01] MEDS: MIDAZOLAM HCL 5 MG/ML-1ML VIAL ONE ×2 (09:29→09:32)
[2021-01-01] MEDS: fentaNYL CITRATE 100 MCG/2 ML VL ONE ×2 (09:29→09:32)
[2021-01-01 10:10] VITALS: BP 105/64
== END | disposition home or self-care (01) ==
LOC: GI 08:56
PROVIDERS: ATTEND Internal Medicine Gastroenterology
DX: R10.9 Unspecified abdominal pain (principal); K29.70 Gastritis, unspecified, without bleeding; E66.9 Obesity, unspecified; D3A.098 Benign carcinoid tumors of other sites; Z20.822 Contact with and (suspected) exposure to COVID-19; Z98.890 Other specified postprocedural states; Z79.899 Other long term (current) drug therapy; Z88.5 Allergy status to narcotic agent; Z68.29 Body mass index [BMI] 29.0-29.9, adult; Z98.51 Tubal ligation status; Z90.49 Acquired absence of other specified parts of digestive tract
CPT/HCPCS: 36415; 43235; 85025; 85610; 85730; J1200; J2250; J3010; U0003

== ENCOUNTER 2022-10-28 21:54 | Emergency (ER) | payer BC, OTHER ==
[~2022-10-28] VITALS: Ht 172.7 cm; Wt 106.2 kg
[~2022-10-28 21:54] MED LIST changes: -LIDOCAINE VISCOUS 2% 15ML UD ONE; -diphenhdrAMINE HCL 50 MG/1 ML VL ONE
[2022-10-28] MEDS ORDERED: DexAMETHasone SOD PHOS 10MG/1ML VIAL INJ IM ONE (22:15)
[2022-10-28] MEDS ORDERED: diphenhdrAMINE HCL 25 MG CAP PO ONE (22:15)
[2022-10-28] MEDS ORDERED: LORA-483 GT (23:38)
[2022-10-28 23:52] VITALS: BP 150/96
== END 2022-10-28 23:54 | disposition home or self-care (01) ==
LOC: ER 21:54
DX: L50.9 Urticaria, unspecified (principal); T50.905A Adverse effect of unspecified drugs, medicaments and biological substances, initial encounter; I10 Essential (primary) hypertension; M54.2 Cervicalgia; Z90.49 Acquired absence of other specified parts of digestive tract; Z88.6 Allergy status to analgesic agent; Y92.9 Unspecified place or not applicable
CPT/HCPCS: 70486; 96372; 99285; J1100

== ENCOUNTER → 2023-07-08 | Outpatient (CLI) | payer OTHER ==
[~2023-07-08] MED LIST changes: +LORA-483 GT
[2023-07-08 16:53] LABS: Urine Bacteria NONE SEEN /hpf (None Seen); Urine Blood Negative /uL (Negative); Urine Clarity Clear (Clear); Urine Color Yellow (Yellow); Urine Mucus FEW (None Seen); Urine Protein, UAD Negative (Negative); Urine Specific Gravity 1.023 (1.001-1.035); Urine Urobilinogen Normal (Negative); Urine WBC 2 /hpf (0 - 5)
[2023-07-08 16:54] LABS: Basophils # (auto) 0.1 10 ^3/uL (0-0.2); Basophils % (auto) 0.7 % (0.0-2.0); Eosinophils # (auto) 0.1 10 ^3/uL (0-0.8); Eosinophils % (auto) 1.7 % (0.0-7.0); Hematocrit 42.2 % (36.0-46.0); Hemoglobin 13.7 g/dL (12.2-16.2); Lymphocytes # (auto) 2.3 10 ^3/uL (0.4-5.4); Lymphocytes % (auto) 32.3 % (10.0-50.0); Mean Corpuscular Hemoglobin 25.2 pg (28.0-32.0); Mean Corpuscular Hgb Conc. 32.5 g/dL (32.0-36.0); Mean Corpuscular Volume 77.4 fL (80.0-100.0); Monocytes # (auto) 0.5 10 ^3/uL (0-1.3); Monocytes % (auto) 6.9 % (0.0-12.0); Neutrophils # (auto) 4.1 10 ^3/uL (1.6-8.6); Neutrophils % (auto) 58.4 % (37.0-80.0); Nucleated Red Blood Cells % 0.1 %; Red Blood Cells 5.46 10^6/uL (4.0-5.20); Red Cell Distribution Width 16.6 % (11.8-14.3)
[2023-07-08 17:04] LABS: Alanine Aminotransferase 14 U/L (7-40); Albumin 4.4 g/dL (3.2-4.8); Alkaline Phosphatase 105 U/L (46-116); Anion Gap 6 (5-15); Aspartate Aminotransferase 9 U/L (13-40); BUN/Creatinine Ratio 10.7 (10.0-20.0); Blood Urea Nitrogen 8 mg/dL (9-23); Calcium 9.5 mg/dL (8.7-10.4); Carbon Dioxide 26 mmol/L (20-30); Chloride 108 mmol/L (98-107); Glucose 82 mg/dL (74-106); Magnesium 1.9 mg/dL (1.6-2.6); Potassium 3.7 mmol/L (3.5-5.1); Sodium 140 mmol/L (136-145)
[2023-07-08 17:05] LABS: Bilirubin, Total 0.4 mg/dL (0.2-1.0); Total Protein 6.9 g/dL (5.7-8.2)
[2023-07-08 17:07] LABS: Ferritin 6.5 ng/mL (10-291); Free T4 (Free Thyroxine) 1.17 ng/dL (0.89-1.76)
[2023-07-08 17:19] LABS: Erythrocyte Sedimentation Rate 2 mm/hr (0-20)
== END | disposition home or self-care (01) ==
LOC: LAB 15:48
PROVIDERS: ATTEND Internal Medicine
DX: E03.9 Hypothyroidism, unspecified (principal); E34.0 Carcinoid syndrome; E83.119 Hemochromatosis, unspecified
CPT/HCPCS: 36415; 80053; 81001; 82728; 83735; 84439; 84443; 85025; 85379; 85652; 86708; 86709

== ENCOUNTER 2023-08-18 08:16 | Day surgery (SDC) | payer OTHER ==
[2023-08-16 10:01] LABS: Hemoglobin 13.6 g/dL (12.2-16.2); Lymphocytes # (auto) 1.5 10 ^3/uL (0.4-5.4); Mean Corpuscular Hgb Conc. 32.1 g/dL (32.0-36.0); Monocytes # (auto) 0.4 10 ^3/uL (0-1.3); Nucleated Red Blood Cells % 0.1 %
[2023-08-16 10:02] LABS: Partial Thromboplastin Time 28.5 SEC (24.5-34.5); Prothrombin Time 10.5 sec (9.3-11.8)
[2023-08-16 10:03] LABS: Basophils # (auto) 0.1 10 ^3/uL (0-0.2); Basophils % (auto) 0.8 % (0.0-2.0); Eosinophils # (auto) 0.2 10 ^3/uL (0-0.8); Eosinophils % (auto) 2.1 % (0.0-7.0); Hematocrit 42.4 % (36.0-46.0); Lymphocytes % (auto) 21.2 % (10.0-50.0); Mean Corpuscular Hemoglobin 24.9 pg (28.0-32.0); Mean Corpuscular Volume 77.6 fL (80.0-100.0); Monocytes % (auto) 5.6 % (0.0-12.0); Neutrophils % (auto) 70.3 % (37.0-80.0); Red Blood Cells 5.46 10^6/uL (4.0-5.20); Red Cell Distribution Width 16.3 % (11.8-14.3); White Blood Cell 7.1 10^3/uL (4.4-10.8)
[2023-08-16 10:43] LABS: Alanine Aminotransferase 14 U/L (7-40); Albumin 4.4 g/dL (3.2-4.8); Alkaline Phosphatase 108 U/L (46-116); Anion Gap 8 (5-15); Aspartate Aminotransferase 12 U/L (13-40); BUN/Creatinine Ratio 7.1 (10.0-20.0); Blood Urea Nitrogen 5 mg/dL (9-23); Calcium 9.5 mg/dL (8.5-10.1); Carbon Dioxide 28 mmol/L (20-30); Chloride 106 mmol/L (98-107); Glucose 102 mg/dL (74-106); Potassium 4.4 mmol/L (3.5-5.1); Sodium 142 mmol/L (136-145)
[2023-08-16 10:44] LABS: Bilirubin, Total 0.3 mg/dL (0.2-1.0); Total Protein 6.8 g/dL (5.7-8.2)
[~2023-08-18] VITALS: Ht 165.1 cm; Wt 104.3 kg
[~2023-08-18 08:16] MED LIST changes: -FLUO-126 PO; +FLUO1TAB14 PO; -LEVO100T8 PO; +LEVO125T7 PO
[2023-08-18] MEDS ORDERED: LIDOCAINE VISCOUS 2% 15ML UD ONE (08:28)
[2023-08-18] MEDS ORDERED: diphenhdrAMINE HCL 50 MG/1 ML VL ONE (08:28)
[2023-08-18] MEDS ORDERED: SODIUM CHLORIDE LOCK 10 ML ONE (08:28)
[2023-08-18] MEDS: MIDAZOLAM HCL 5 MG/ML-1ML VIAL ONE ×3 (09:25→09:31)
[2023-08-18] MEDS: fentaNYL CITRATE 100 MCG/2 ML VL ONE ×3 (09:25→09:31)
[2023-08-18 09:36] VITALS: TEMP 97.5; O2SAT 92
[2023-08-18 10:21] VITALS: BP 116/72; PULSE 74; RESP 15; O2SAT 95
== END 2023-08-18 10:36 | disposition home or self-care (01) ==
LOC: GI 08:16
PROVIDERS: ATTEND Internal Medicine Gastroenterology
DX: R10.13 Epigastric pain (principal); K29.50 Unspecified chronic gastritis without bleeding; D3A.092 Benign carcinoid tumor of the stomach
CPT/HCPCS: 36415; 43239; 80053; 85025; 85610; 85730; J1200; J2250; J3010; J7030

== ENCOUNTER → 2023-12-09 | Outpatient (CLI) | payer BC, OTHER | END | disposition home or self-care (01) | LOC: XYW 13:26 | PROVIDERS: ATTEND Internal Medicine | DX: I51.89 Other ill-defined heart diseases (principal); I51.7 Cardiomegaly; E34.0 Carcinoid syndrome | CPT/HCPCS: 93306 ==

== ENCOUNTER → 2025-05-02 | Day surgery (SDC) | payer OTHER ==
[2025-04-30 10:46] LABS: Hematocrit 43.5 % (36.0-46.0); Hemoglobin 14.0 g/dL (12.2-16.2); Mean Corpuscular Hemoglobin 24.6 pg (28.0-32.0); Mean Corpuscular Volume 76.5 fL (80.0-100.0); Nucleated Red Blood Cells % 0.1 %
[2025-04-30 10:52] LABS: Urine Protein, UAD Negative (Negative)
[2025-04-30 10:59] LABS: INR 1.03 (0.9-1.15); Partial Thromboplastin Time 27.1 SEC (24.5-34.5); Prothrombin Time 10.9 sec (9.3-11.8)
[2025-04-30 11:10] LABS: Alanine Aminotransferase 10 U/L (7-40); Albumin 4.4 g/dL (3.2-4.8); Alkaline Phosphatase 91 U/L (46-116); Anion Gap 6 (5-15); BUN/Creatinine Ratio 13.7 (10.0-20.0); Blood Urea Nitrogen 10 mg/dL (9-23); Calcium 9.3 mg/dL (8.7-10.4); Carbon Dioxide 27 mmol/L (20-31); Glucose 97 mg/dL (74-106); Potassium 4.0 mmol/L (3.5-5.1); Sodium 142 mmol/L (136-145); Total Protein 6.5 g/dL (5.7-8.2)
[2025-04-30 11:11] LABS: Bilirubin, Total 0.5 mg/dL (0.2-1.0)
[2025-04-30 11:13] LABS: Chloride 109 mmol/L (98-107)
[~2025-05-02] VITALS: Ht 165.1 cm; Wt 100.2 kg
[~2025-05-02] MED LIST changes: +CHOLCAP10 PO; +COBA5000 SL; +CYAN1TAB14 PO; +GLYCOPYRROLATE 0.2 MG/ML 1ML VIAL ONE; +LIDOCAINE 2% (LOCAL ANESTH.) PF 5ml SDV ONE; -LORA-483 GT; +MIDAZOLAM HCL 2MG/2ML 2ml VIAL (1mg/ml) ONE; +ONDANSETRON HCL 4 MG/2 ML VIAL ONE; -PANT40TA2 PO; +PROB1CHW27 PO; +PROPOFOL 10 MG/ML 20 ML IV ONE; +fentaNYL CITRATE 100 MCG/2 ML VL ONE
--- NOTE | 2025-05-02 10:07 | DVHHP2 ---
GI H&P Pre-Op Assessment Date: 05/02/25 Chief complaint: Epigastric pain, burping and heartburn HPI: per clinic note Past medical history: per clinic note Past surgical history: per clinic note Family history: per clinic note Physical exam: General: NAD, AAOX3 HEENT: PERRL, no scleral icterus, normal hearing, gums without lesions or bleeding, oropharynx clear without erythema or exudate. Neck: Supple without enlargement of the thyroid, or lymphadenopathy. Chest: Normal size and shape, no tenderness, lung chester clear to auscultation and percussion, nonlabored breathing. Heart: RRR, no murmur Abdomen: non-distended, no tenderness to palpation, +BS, no hepatosplenomegaly Extremities: no edema Neurological: CN II-XII intact, sensation intact in all extremities, 5+ strength in all extremities Skin: No rashes, No jaundice Assessment: - Epigastric pain, burping and heartburn Plan: - EGD - Risks (bleeding, infection, perforation, reaction to sedation medications and cardiopulmonary arrest) and benefit of the procedure were explained to patient. Patient agrees to undergo the procedure. HERBIE ARIZMENDI MD May 02, 2025 10:07
[2025-05-02 10:08] VITALS: TEMP 98.2; O2SAT 96
--- NOTE | 2025-05-02 10:10 | DVHOP2 ---
Operative Report DATE OF OPERATION: 05/02/25 PROCEDURE: Upper Endoscopy. 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 POSTOPERATIVE DIAGNOSES: 1. Mild gastritis 2. 5 mm gastric polyp in the body of the stomach was removed with cold forceps. PROCEDURE PERFORMED BY: Zeb Arguello SCOPE: Olympus videoendoscope. ASA CLASS: 3 PREOPERATIVE MEDICATIONS: MAC with Dr Ocampo PROCEDURE IN DETAIL: After obtaining an informed consent, the patient was placed on left lateral decubitus position. The patient was then sedated with the above medications. A bite block was placed between her teeth. The endoscope was then passed through the oropharynx, into the esophagus, and through the stomach and pylorus up to the second and third part of the duodenum. The duodenum was normal in appearance. There was mild gastritis. Gastric biopsy obtained using cold forceps. There was a 5 mm gastric polyp in the body of stomach was removed with cold forceps. The GE junction was normal appearance at 37 cm. The esophagus was normal in appearance. The endoscope was then withdrawn. The patient tolerated the procedure well without difficulty. COMPLICATIONS : None SPECIMENS: Gastric biopsies, gastric polyp DISPOSITION: D/C to home PLAN: 1. Await for biopsy result 2. Continue with omeprazole ZEB ARGUELLO MD May 02, 2025 10:10
--- NOTE | 2025-05-02 10:10 | DVHDS2 ---
Physician Discharge Progress N Final Diagnosis: Gastritis, gastric polyp Operations or Procedures: Operations or Procedures EGD with cold biopsies Condition on Discharge: Good Disposition: Home Discharge Instructions: Diet: Regular Activity: No Restrictions, As Tolerated Medications: Resume previous home medications Follow Up Care: Discharge Statement: "Patient was advised to return to the ER or call 911 if any headaches, dizziness, shortness of breath, chest pain, abdominal pain, bleeding, fevers, or worsening of medical condition. Patient was counseled about treatment plan, medications, possible side effects, patientverbalized understanding. All questions were answered to the best of my ability. This discharge took greater then 30 minutes in planning, reviewing docu mentation, counseling the patient, and discussing with other team members." HERBIE ARIZMENDI MD May 02, 2025 10:10
[2025-05-02 10:50] VITALS: BP 109/73; PULSE 63; RESP 13; O2SAT 97
== END | disposition home or self-care (01) ==
LOC: GI 07:34
PROVIDERS: ATTEND Internal Medicine Gastroenterology
DX: K29.50 Unspecified chronic gastritis without bleeding (principal); K31.7 Polyp of stomach and duodenum; K31.A0 Gastric intestinal metaplasia, unspecified; E03.9 Hypothyroidism, unspecified; I10 Essential (primary) hypertension; D3A.092 Benign carcinoid tumor of the stomach; Z90.49 Acquired absence of other specified parts of digestive tract; Z98.890 Other specified postprocedural states
CPT/HCPCS: 36415; 43239; 80053; 81001; 85025; 85610; 85730; 88305; 88342; J2003; J2250; J2405; J2704; J3010; J7030

== ENCOUNTER 2025-08-15 07:55 | Outpatient (CLI) | payer OTHER ==
[~2025-08-15 07:55] MED LIST changes: -GLYCOPYRROLATE 0.2 MG/ML 1ML VIAL ONE; -LIDOCAINE 2% (LOCAL ANESTH.) PF 5ml SDV ONE; -MIDAZOLAM HCL 2MG/2ML 2ml VIAL (1mg/ml) ONE; -ONDANSETRON HCL 4 MG/2 ML VIAL ONE; -PROPOFOL 10 MG/ML 20 ML IV ONE; -fentaNYL CITRATE 100 MCG/2 ML VL ONE
--- NOTE | 2025-08-15 10:59 | DVHSR ---
APPROVED REPORT EXAM: Two-dimensional and M-mode echocardiogram with Doppler and color Doppler. DIMENSIONS LVDd4.7 (3.8-5.7cm)LA (2D)4.0 (1.9-4.0cm)Aortic Root2.8 (2.0-3.7cm) LVDs3.2 (2.5-4.0cm)LA (MM) (1.9-4.0cm)Aortic Cusp Exc1.5 (1.5-2.0cm) EF (%) 60.0 (55-70%)Rt. Atrium4.0 (1.9-4.0cm)Asc. Aorta cm IVSd1.0 (0.7-1.1cm)RV (D) (1.8-2.4cm) PWd1.0 (0.7-1.1cm) Mitral Valve MitralMitral Stenosis E wave1.20m/sMV Mean GR.mmHg A wave0.90m/sMV Peak GR.mmHg E/A ratio1.32D MVAcm2 Aortic Valve Aortic ValveAortic Stenosis V10.60m/Craig Mean GR.5mmHg V21.50m/Craig Peak GR.10mmHg Pulmonic Valve V20.71m/s LEFT VENTRICLE The left ventricle is normal size. The left ventricle is normal in structure and function. The Ejection Fraction is within normal limits. RIGHT VENTRICLE The right ventricle is normal size. ATRIA The left atrial size is normal. The right atrium size is normal. The interatrial septum is intact with no evidence for an atrial septal defect. MITRAL VALVE The mitral valve is normal in structure and function. There is no mitral valve regurgitation noted. PULMONIC VALVE The pulmonic valve is not well visualized. TRICUSPID VALVE The tricuspid valve is grossly normal. AORTIC VALVE The aortic valve opens well. No aortic regurgitation is present. GREAT VESSELS The aortic root is normal size. PERICARDIAL EFFUSION There is no pericardial effusion. Conclusion LVH EF >55%
== END 2025-08-15 17:00 | disposition home or self-care (01) ==
LOC: Rad HDHVI 07:55
PROVIDERS: ATTEND Internal Medicine Cardiovascular Disease
DX: I51.7 Cardiomegaly (principal); R00.2 Palpitations
CPT/HCPCS: 93306

== ENCOUNTER 2025-08-19 08:56 | Outpatient (CLI) | payer OTHER ==
[~2025-08-19] VITALS: Ht 165.1 cm; Wt 101.2 kg
--- NOTE | 2025-08-23 16:06 | DVHSR ---
APPROVED REPORT Exam: Nuclear Stress Test Indication: Chest pain Ht: 5 ft 5 in Wt: 223 lbs BSA: 2.07 m2 HR: 62 bpm BP: 126/64 mmHg BMI: 37.10 Rhythm: NSR Medical History Medical History: Chest pain, Abnormal EKG, Palpitations Medications: Levothyroxine, Fluoxetine, Vit D2, Vit B12 Allergies: Codeine Stress Test Details Stress Test: Exercise stress testing was performed using a Jose Antonio protocol. HR Resting HR: 62 bpm Max Heart Rate (APMHR): 164.441761 bpm Max HR Achieved: 150 bpm Target HR (85% APMHR): 139.579240 bpm % of APMHR: 91.46 Recovery HR: 81 bpm HR response to stress: Normal HR response to stress BP Resting BP: 126/64 mmHg Max BP: 159/90 mmHg Recovery BP: 140/70 mmHg BP response to stress: Normal blood pressure response to stress. ECG Resting ECG: Sinus Rhythm Stress ECG: Sinus Tachycardia Arrhythmia: PVCs Recovery ECG: Sinus Rhythm Clinical Reason for Termination: Target HR achieved Stress Symptoms: none Exercise duration: 5 min 01 sec Exercise capacity: 7.00 METs Stress ECG Conclusion NON ISCHEMIC CLINICAL RESPONSE NON ISCHEMIC ECG RESPONSE NON ISCHEMIC CARDIOLITE IMAGES EF >55% NM EXAM: Myocardial Perfusion REST/STRESS Imaging Protocol: Rest Tc-99m/Stress Tc-99m 1 day Resting Data Rest SPECT myocardial perfusion imaging was performed in supine position 30 minutes following the intravenous injection of 11.0 mCi of Tc-99m Sestamibi. Time of rest injection: 914 Date: 08/19/2025 Time of rest imagin Date: 08/19/2025 Administration Route: IV Administration Site: Left AC Exercise Stress At peak stress, the patient was injected intravenously with 29.8 mCi of Tc-99m Sestamibi. Time of stress injection: 1047 Date: 08/19/2025 Time of stress imagin Date: 08/19/2025 Administration Route: IV Administration Site: Left AC Heart Rate at time of stress injection: 148 bpm. Patient continued to exercise for 1 minute(s). Gated Stress SPECT was performed 15 minutes after stress injection. The images were gated to evaluate regional wall motion and calculate left ventricular ejection fraction. Comments Cardiolite injection at 4 minutes, 7 seconds into test. Nuclear Conclusion NON ISCHEMIC CLINICAL RESPONSE NON ISCHEMIC ECG RESPONSE NON ISCHEMIC CARDIOLITE IMAGES EF >55%
== END 2025-08-19 17:00 | disposition home or self-care (01) ==
LOC: Rad HDHVI 08:56
PROVIDERS: ATTEND Internal Medicine Cardiovascular Disease
DX: I49.3 Ventricular premature depolarization (principal); R00.0 Tachycardia, unspecified; R00.2 Palpitations; R94.31 Abnormal electrocardiogram [ECG] [EKG]; R73.03 Prediabetes; R07.89 Other chest pain; Z13.6 Encounter for screening for cardiovascular disorders
CPT/HCPCS: 78452; 93017; A9500; 96374